=== PATIENT | female | born 1940 | race Asian ===

== ENCOUNTER 2017-10-19 06:23 | Observation (INO) ==
[2017-10-19] MEDS ORDERED: *HR* FentaNYL (PF) 100 MCG/2 ML VIAL IVP ONE (06:35)
--- NOTE | 2017-10-19 06:38 | Emergency Department Note ---
START Narrative - START START: 77-year-old female percent for evaluation of left lower knee pain. Patient presents via EMS. EMS reported the patient did get up to use the restroom and was ambulating with the symptoms of a walker. Patient notes that her pain significantly worsened and she sat down. Patient does not she has a history of a left leg fracture back in December of last year. Patient denies any recent surgeries. Patient notes pain is primarily to the left knee. Denies any hip pain. Denies any chest pain or shortness of breath. Neurovascularly intact. On exam the patient does have a soft mobilizing to the left knee. Grossly deformed. Neurovascularly intact to soft compartments. Patient will get preoperative labs and EKG as well as imaging of the left lower extremity.
[2017-10-19] MEDS ORDERED: traMADol 50 MG TABLET PO ONE (06:55)
[2017-10-19 07:01] LABS: Basophils % 0.2 %; Eosinophils # 0.1 K/mcL (0.0-0.6); Eosinophils % 0.6 %; Hematocrit 35.8 % (35.3-44.9); Hemoglobin 11.9 g/dL (11.5-15.4); Immature Granulocytes % 0.7 % (0-4); Lymphocytes # 1.3 K/mcL (0.6-4.6); Lymphocytes % 9.9 %; Mean Corpuscular HGB Conc 33.2 g/dL (31.6-35.5); Mean Corpuscular Hemoglobin 34.5 pg (28.0-33.3); Mean Corpuscular Volume 103.8 fL (83.0-100.0); Mean Platelet Volume 10.3 fL (9.4-12.4); Monocytes # 0.8 K/mcL (0.0-1.3); Monocytes % 5.9 %; Neutrophils # 10.9 K/mcL (1.6-8.9); Platelet Count 224 K/mcL (140-400); Red Blood Count 3.45 M/mcL (3.82-4.97); Red Cell Distribution Width 13.9 % (11.5-14.5); Segmented Neutrophils % 82.7 %
--- NOTE | 2017-10-19 07:22 | Emergency Department Note ---
Disposition Clinical Impression: Closed fracture of left tibia and fibula Qualifiers: Encounter type: initial encounter Qualified Code(s): S82.202A - Unspecified fracture of shaft of left tibia, initial encounter for closed fracture Disposition: Admitted As Inpatient Condition: Good Referrals: Ruddy Daniel Jr, MD [Primary Care Provider] - Forms: ED Satisfaction Letter Time of Disposition: 11:52 General Adult HPI - General Chief complaint: ED Extremity Injury, Lower Stated complaint: leg injury Time Seen by Provider: 10/19/17 06:33 Source: patient Limitations: no limitations Nursing Notes Reviewed: Yes Vital Signs Reviewed: Yes - History of Present Illness HPI Narrative: Pain on ambulation of left lower extremity. Started when she was ambulating to the bathroom. No loss of consciousness. No trauma. Has not taken anything to make this better. Is currently refusing medication and is requesting Ultram. No radiation. Has been ambulatory since however this is a significant source of pain for her. Pain Scale: 4 - Related Data Home Medications Medication Instructions Recorded Confirmed Amiloride HCl 5 mg PO DAILY 10/19/17 10/19/17 Calcium Carbonate/Vitamin D3 1 tab PO BID 10/19/17 10/19/17 [Calcium 500 + Vit D Caplet] Celecoxib [Celebrex] 200 mg PO DAILY 10/19/17 10/19/17 Multivitamin [One Daily Essential] 1 tab PO DAILY 10/19/17 10/19/17 Tofacitinib Citrate [Xeljanz] 10 mg PO DAILY 10/19/17 10/19/17 Tramadol HCl [Ultram] 50 mg PO QID PRN 10/19/17 10/19/17 Allergies Allergy/AdvReac Type Severity Reaction Status Date / Time No Known Allergies Allergy Verified 10/19/17 09:05 All systems ED: reviewed and negative except as stated. Constitutional: Denies: fever, chills ENT ED: Denies: congestion Cardiovascular: Denies: chest pain, palpitations, syncope Respiratory: Denies: cough, dyspnea Gastrointestinal: Denies: abdominal pain, nausea, vomiting, diarrhea Musculoskeletal: Reports: other (Left lower leg pain. Deformity.). Denies: back pain, neck pain Integumentary: Denies: rash, abrasion Neurological: Denies: headache, weakness, numbness Past Medical History - Past Medical History Attestation: Yes The following information was validated with the patient. Source: patient Medical history: Reports: arthritis, hypertension, RA Psychiatric history: Reports: no psych history - Social History Smoking Status: Former smoker Smokeless Tobacco Status: No Alcohol use: Reports: none Drug use: Reports: none Physical Exam - General Limitations: no limitations General appearance: alert, in no apparent distress - Head Head exam: atraumatic, normocephalic, normal inspection - Eye Eye exam: Present: normal appearance, PERRL, EOMI - ENT ENT exam: normal exam, normal oropharynx, mucous membranes moist - Neck Neck exam: Present: normal inspection, full ROM, trachea midline - Chest Chest inspection: Present: normal inspection, symmetric chest wall rise - Respiratory Respiratory exam: Present: normal lung sounds bilaterally. Absent: respiratory distress, accessory muscle use - Cardiovascular Cardiovascular exam: Present: regular rate, normal rhythm, normal heart sounds - Abdominal Exam Abdominal exam: Present: soft, Non-Tender. Absent: tenderness, distention, guarding, rebound, rigidity, organomegaly, Morris's sign, Rovsing's sign, tenderness at McBurney's Point - Expanded Upper Extremity Exam Shoulder exam: Present: normal inspection, full ROM Arm exam: Present: normal inspection, full ROM Elbow exam: Present: normal inspection, full ROM Forearm/Wrist exam: Present: normal inspection, full ROM Hand exam: Present: normal inspection, full ROM, other (Lateral deviation consistent with rheumatoid arthritis of all of her digits.) Vascular exam: Normal: capillary refill, radial pulse - Expanded Lower Extremity Exam Hip/Pelvis exam: Present: normal inspection, full ROM Upper leg exam: Present: normal inspection, full ROM Knee exam: Present: normal inspection Lower leg exam: Present: other (Gross deformity of left lower extremity. Valgus to the left proximal tib-fib area. Mild swelling and ecchymosis to the left tib-fib. Good pedal pulses bilaterally. Good sensation bilaterally. All compartments are soft.) Ankle exam: Present: normal inspection, full ROM Foot/toe exam: Present: normal inspection, full ROM, other (Lateral deviation of all digits. Consistent with rheumatoid arthritis.) - Back Exam Back exam: Present: normal inspection, full ROM. Absent: tenderness - Neurological Exam Neurological exam: Present: alert, oriented X3 - Psychiatric Psychiatric exam: Present: normal affect, normal mood - Skin Skin exam: Present: warm, dry, intact, normal color Course Course Narrative: Female patient with a history of rheumatoid arthritis as well as osteoporosis and elevated blood pressure reporting to the emergency department with the complaints of left lower extremity pain. She states that she was ambulating to the bathroom when she felt a pop in her leg. She denies any trauma. She denies falling or any syncope. She did notice a deformity to her leg at that time. She was able to get back to her bed which is where her life alert is located. A mass was called. Patient does have gross deformity of her tib-fib area on the left lower extremity. She has some ecchymosis as well as swelling and a fluid-filled blister over the area that is grossly deformed. Do not appreciate any breaks in her skin currently. The compartments are soft. There is some mild swelling and ecchymosis however she has good pulses distal to the injury. She has good sensation. No other signs of trauma to her body. She does have a small fluid-filled blister over the area of injury. Lung sounds are clear heart tones are normal. The patient appears to be mentating appropriately. She does report that there was a small deformity to her lower extremity before from a previous knee issue. Imaging of this extremity showed a comminuted fracture with deviation of her tibia and fibula to the left lower extremity. Dr. Dubon has been consult it. He will come to the emergency department. We will procedurally sedate the patient and straighten this extremity. We will made to the hospitalist. - Reevaluation(s) Reevaluation #1: Pharmacy contacted at this time. We are still waiting on ketamine for the sedation. Patient states also she was last night. Time: 08:57 - Consultations Consultation #1: I spoke with Dr. Hernandez. He will be down to see the patient. We will procedurally sedate the patient and straighten her leg. We will place a long posterior splint. We will be admitting to the hospitalist. Time: 08:11 Consultation #2: Dr Kurtz accepted patient stable condition. Time: 11:51 Vital Signs Temperature 98.2 F 10/19/17 06:32 Pulse Rate 90 10/19/17 06:32 Respiratory Rate 16 10/19/17 06:32 Blood Pressure 139/83 10/19/17 06:32 O2 Sat by Pulse Oximetry 100 10/19/17 06:32 Temperature 98.2 F 10/19/17 06:32 Pulse Rate 82 10/19/17 11:11 Respiratory Rate 18 10/19/17 11:11 Blood Pressure 154/84 10/19/17 11:11 O2 Sat by Pulse Oximetry 99 10/19/17 10:32 Oxygen Delivery Oxygen Delivery [] Nasal Cannula Oxygen Delivery [] Nasal Cannula Oxygen Delivery [] Nasal Cannula Oxygen Delivery [] Nasal Cannula Oxygen Delivery [] Nasal Cannula Oxygen Delivery [] Nasal Cannula Oxygen Delivery [] Nasal Cannula Oxygen Delivery [] Nasal Cannula Oxygen Delivery [] Nasal Cannula Oxygen Delivery Room Air Procedures - Procedural Sedation Indication: fracture/dislocation reduction Dietary Status: NPO after Midnight H&P (including ROS) documented in medical record: Yes Previous reaction to sedatives/anesthetics: No Airway Assessment: Patient can open mouth completely, TMJ function normal Possible difficult airway: No ASA Classification: CLASS II-Mild systemic disease Ketamine: IV Ketamine Dose: 90 Patient Tolerated Procedure: well, no complications Complications: none Additional Comments: Patient's lower extremity was reduced. And splinted. Medical Decision Making - Medical Records Medical records reviewed: Yes I reviewed the patient's medical records. - Lab Data Lab results reviewed: Yes I reviewed the patient's lab results. Result diagrams: 10/19/17 06:53 10/19/17 06:53 Lab Results 10/19/17 10/19/17 Range/Units 06:53 06:53 WBC 13.2 H (4.3-11.1) K/mcL RBC 3.45 L (3.82-4.97) M/mcL Hgb 11.9 (11.5-15.4) g/dL Hct 35.8 (35.3-44.9) % MCV 103.8 H (83.0-100.0) fL MCH 34.5 H (28.0-33.3) pg MCHC 33.2 (31.6-35.5) g/dL RDW 13.9 (11.5-14.5) % Plt Count 224 (140-400) K/mcL MPV 10.3 (9.4-12.4) fL Immature Gran % 0.7 (0-4) % Seg Neutrophils % 82.7 % Lymphocytes % 9.9 % Monocytes % 5.9 % Eosinophils % 0.6 % Basophils % 0.2 % Neutrophils # 10.9 H (1.6-8.9) K/mcL Lymphocytes # 1.3 (0.6-4.6) K/mcL Monocytes # 0.8 (0.0-1.3) K/mcL Eosinophils # 0.1 (0.0-0.6) K/mcL Basophils # 0.0 (0.0-0.2) K/mcL Sodium 138 (136-145) mEq/L Potassium 4.1 (3.5-5.1) mEq/L Chloride 109 H (98-107) mEq/L Carbon Dioxide 19 L (23-29) mEq/L BUN 28 H (8-23) mg/dL Creatinine 1.03 (0.60-1.20) mg/dL Est GFR ( Amer) > 60 (> 60) Est GFR (Non-Af Amer) 52 L (> 60) BUN/Creatinine Ratio 27 H (6-26) Glucose 146 H (70-105) mg/dL Calculated Osmolality 294 (280-300) Calcium 9.2 (8.6-10.3) mg/dL - Radiology Data Radiology results reviewed: Yes I reviewed the patient's radiology results. Knee X-Ray 10/19/17 06:34 IMPRESSION: Acute appearing fractures of the proximal left tibia and fibula. Severe degenerative changes about the knee and ankle. D/ / Blayne Benavidez MD / Blayne Benavidez MD Interpreting Provider: Blayne Benavidez MD Ankle X-Ray 10/19/17 06:35 IMPRESSION: Acute appearing fractures of the proximal left tibia and fibula. Severe degenerative changes about the knee and ankle. D/ / Blayne Benavidez MD / Blayne Benavidez MD Interpreting Provider: Blayne Benavidez MD Tibia/Fibula X-Ray 10/19/17 06:35 IMPRESSION: Acute appearing fractures of the proximal left tibia and fibula. Severe degenerative changes about the knee and ankle. D/ / Blayne Benavidez MD / Blayne Benavidez MD Interpreting Provider: Blayne Benavidez MD - EKG Data EKG #1 EKG attestation: Yes I reviewed and interpreted this EKG. EKG results narrative: Normal sinus rhythm at a rate 84. IA interval is 163. QRS duration is 87. QT is 384. QTC is 454. No signs of acute ischemia. No significant change from previous EKG dated 04/17/2014.
--- NOTE | 2017-10-19 07:30 | Emergency Department Note ---
Disposition Clinical Impression: Closed fracture of left tibia and fibula Qualifiers: Encounter type: initial encounter Qualified Code(s): S82.202A - Unspecified fracture of shaft of left tibia, initial encounter for closed fracture; S82.402A - Unspecified fracture of shaft of left fibula, initial encounter for closed fracture Disposition: Still a Patient Referrals: Ruddy Daniel Jr, MD [Primary Care Provider] - Forms: ED Satisfaction Letter General Adult HPI - General Chief complaint: ED Extremity Injury, Lower Stated complaint: leg injury Time Seen by Provider: 10/19/17 06:33 Source: patient Limitations: no limitations - History of Present Illness Pain Scale: 4 - Related Data Allergies Allergy/AdvReac Type Severity Reaction Status Date / Time No Known Allergies Allergy Verified 10/19/17 06:31 Past Medical History - Past Medical History Medical history: Reports: arthritis, hypertension, RA Psychiatric history: Reports: no psych history - Social History Smoking Status: Former smoker Smokeless Tobacco Status: No Alcohol use: Reports: none Drug use: Reports: none Physical Exam - General Limitations: no limitations General appearance: alert Course - Reevaluation(s) Reevaluation #1: ED ATTESTATION NOTE: I examined this patient and my medical decision-making was reviewed with the Resident Physician/NITROGLYCERIN SUPERVISOR/PA/Student. I have personally performed a face to face evaluation on this patient & I agree with the documented findings, disposition and treatment plan as described except to the extent set forth below. Patient was seen with emergency medicine resident Irina Gutierrez please see copy of her note for details of this encounter Briefly: 77-year-old female via EMS after of feeling her leg "give out" use walker. History of pre-existing left knee surgery that was present by palpation and she has had angulation of her left lower extremity for a while now. Patient did not injure her head or neck. She is awake and alert she declined parenteral narcotics. She is afebrile with stable vital signs she is neurovascularly intact x-ray shows a angulated proximal tib-fib fracture. No signs of compartment syndrome clinically. Dr. Keturah Mcintosh from orthopedics has been consulted. Labs are pending admission anticipated. Disposition pending. Time: 07:30 Vital Signs Temperature 98.2 F 10/19/17 06:32 Pulse Rate 90 10/19/17 06:32 Respiratory Rate 16 10/19/17 06:32 Blood Pressure 139/83 10/19/17 06:32 O2 Sat by Pulse Oximetry 100 10/19/17 06:32 Temperature 98.2 F 10/19/17 06:32 Pulse Rate 90 10/19/17 06:32 Respiratory Rate 16 10/19/17 06:32 Blood Pressure 139/83 10/19/17 06:32 O2 Sat by Pulse Oximetry 100 10/19/17 06:32 Oxygen Delivery Oxygen Delivery Room Air Medical Decision Making - Lab Data Result diagrams: 10/19/17 06:53 Lab Results 10/19/17 Range/Units 06:53 WBC 13.2 H (4.3-11.1) K/mcL RBC 3.45 L (3.82-4.97) M/mcL Hgb 11.9 (11.5-15.4) g/dL Hct 35.8 (35.3-44.9) % MCV 103.8 H (83.0-100.0) fL MCH 34.5 H (28.0-33.3) pg MCHC 33.2 (31.6-35.5) g/dL RDW 13.9 (11.5-14.5) % Plt Count 224 (140-400) K/mcL MPV 10.3 (9.4-12.4) fL Immature Gran % 0.7 (0-4) % Seg Neutrophils % 82.7 % Lymphocytes % 9.9 % Monocytes % 5.9 % Eosinophils % 0.6 % Basophils % 0.2 % Neutrophils # 10.9 H (1.6-8.9) K/mcL Lymphocytes # 1.3 (0.6-4.6) K/mcL Monocytes # 0.8 (0.0-1.3) K/mcL Eosinophils # 0.1 (0.0-0.6) K/mcL Basophils # 0.0 (0.0-0.2) K/mcL
[2017-10-19 07:40] LABS: Chloride 109 mEq/L (98-107); Potassium 4.1 mEq/L (3.5-5.1); Sodium 138 mEq/L (136-145)
[2017-10-19 07:41] LABS: Blood Urea Nitrogen 28 mg/dL (8-23); Calcium 9.2 mg/dL (8.6-10.3); Glucose 146 mg/dL (70-105); Osmolality,Calculated 294 (280-300)
[2017-10-19] MEDS ORDERED: Tdap (Boostrix) Vaccine 0.5 ML SYRINGE IM ONE (08:00)
[2017-10-19] MEDS ORDERED: *HR* Ketamine 500 MG/5 ML MDV IVP ONE (08:04)
[2017-10-19] MEDS ORDERED: 0.9 % Sodium Chloride 1,000 ML IVC ONE (08:11)
[2017-10-19] MEDS ORDERED: KETAMINE IVP ONE (09:00)
[2017-10-19] MEDS ORDERED: SODIUM CHLORIDE 0.9% IVP ONE (09:00)
[2017-10-19 09:09] LABS: BUN/Creatinine Ratio 27 (6-26); Carbon Dioxide 19 mEq/L (23-29); eGFR For Non-African Americans 52 (> 60)
[2017-10-19] MEDS ORDERED: Ondansetron 4 MG/2 ML VIAL IVP ONE (13:03)
[2017-10-19] MEDS ORDERED: Ondansetron 4 MG/2 ML VIAL ONE (13:06)
[2017-10-19] MEDS ORDERED: Naloxone 0.4 MG/ML INJ IVP PRN (13:18)
[2017-10-19] MEDS ORDERED: *HR* OxyCODONE Immed Rel 5 MG TABLET PO PRN (13:18)
[2017-10-19] MEDS ORDERED: Acetaminophen 325 MG TABLET PO PRN (13:18)
[2017-10-19] MEDS ORDERED: Ondansetron 4 MG/2 ML VIAL IVP PRN (13:22)
[2017-10-19] MEDS ORDERED: Ringers Solution, Lactated 1,000 ML IVC SCH (13:30)
--- NOTE | 2017-10-19 15:31 | Orthopedic Consult Note ---
Date of Encounter: 10/19/17 Time of Encounter: 15:29 Assessment and Plan (1) Closed fracture of left tibia and fibula Current Visit: Yes Status: Acute The diagnosis and treatment recommendations were discussed with the patient. She has a displaced fracture of the left tibia and fibula. After discussing the pros and cons of treatment options including non-operative and operative intervention, the patient has consented for closed reduction of the left leg and placement of a long leg splint to improve her alignment. Procedure: Patient was placed on a monitor and conscious sedation was performed by the emergency department physician. The tibia and fibula were then closed reduced. A long leg posterior slab splint with a sugartong was placed on the patient to allow for swelling. Splint was allowed to harden and then postreduction x-rays were obtained. Showed improvement in the alignment of the fracture in both AP and lateral planes. We will follow x-rays while admitted. If there is evidence of the bone shifting we will take her for a closed reduction in the operating room and casting. She should remain nonweightbearing of the left lower extremity. She will be admitted to the hospitalist service. Qualifiers: Encounter type: initial encounter Qualified Code(s): S82.202A - Unspecified fracture of shaft of left tibia, initial encounter for closed fracture; S82.402A - Unspecified fracture of shaft of left fibula, initial encounter for closed fracture History of Present Illness Chief complaint: Left leg pain HPI: Ms. Graham is a 77 year old female with a history of rheumatoid arthritis who had acute onset of pain in the left leg well ambulating to the bathroom. She denies actually falling. She had a significant pain in the left leg and noticed a deformity to the leg and sat down. EMS was called and she was brought to the emergency department where she was diagnosed with a displaced left proximal third tibia and fibula fracture. She does have a history of a left tibial plateau fracture treated nonoperatively about 9 months ago. She has fallen into valgus deformity on that side in the left knee. Patient notes pain is primarily to the left leg. Denies any hip pain. Denies any chest pain or shortness of breath. Neurovascularly intact. On exam the patient does have some swelling to the left leg. Grossly deformed. Past Med Surg Social Fam HX - Past Medical History Medical history: arthritis, hypertension, RA Psychiatric history: no psych history - Past Surgical History Additional surgical history: Carpal tunnel release - Social History Smoking Status: Former smoker Smokeless Tobacco Status: No Alcohol use: none Drug use: none Medications and Allergies Amiloride HCl 5 mg PO DAILY 10/19/17 [History] Calcium Carbonate/Vitamin D3 [Calcium 500 + Vit D Caplet] 1 tab PO BID 10/19/17 [History] Celecoxib [Celebrex] 200 mg PO DAILY 10/19/17 [History] Multivitamin [One Daily Essential] 1 tab PO DAILY 10/19/17 [History] Tofacitinib Citrate [Xeljanz] 10 mg PO DAILY 10/19/17 [History] Tramadol HCl [Ultram] 50 mg PO QID PRN 10/19/17 [History] 3 Allergy/AdvReac Type Severity Reaction Status Date / Time morphine AdvReac Hallucinati Verified 10/19/17 12:28 ng All Systems Reviewed: The remainder of the systems were reviewed and are negative except as noted in the HPI Physical Exam - Constitutional Vitals: Temp Pulse Resp BP Pulse Ox 98.7 F 67 14 152/76 98 10/19/17 15:05 10/19/17 15:05 10/19/17 15:05 10/19/17 15:05 10/19/17 15:05 Exam: Consult Exam: Constitutional -Vitals reviewed -The patient is well developed and well nourished. Psychiatric -The patient is alert and oriented x 3. Respiratory: -Respiratory effort normal Abdomen: -Soft abdomen -Non tender -Non distended: Left upper extremity: -The overlying skin is intact. No obvious signs of acute trauma. -No tenderness to palpation throughout. -No significant pain with passive motion of the shoulder, elbow, wrist, and fingers within the limits of the bed. -Spontaneously moves extremity without pain -Sensation grossly intact to light touch throughout the median, radial, and ulnar distributions. -Radial pulse is present; Fingers have good capillary refill. Right upper extremity: -The overlying skin is intact. No obvious signs of acute trauma. -No tenderness to palpation throughout. -No significant pain with passive motion of the shoulder, elbow, wrist, and fingers within the limits of the bed. -Spontaneously moves extremity without pain -Sensation grossly intact to light touch throughout the median, radial, and ulnar distributions. -Radial pulse is present; Fingers have good capillary refill. Left lower extremity: -Left leg shows obvious valgus deformity. Skin is intact with fracture blisters present -Compartments soft and compressible -Tenderness to palpation over deformity -No pain with log roll/IR at hip -Able to dorsiflex and plantarflex the ankle and toes. -Sensation is grossly intact to light touch throughout the sural, saphenous, superficial peroneal, and deep peroneal distributions. -Toes have good capillary refill. Right lower extremity: -The overlying skin is intact. No obvious signs of acute trauma. -No tenderness to palpation throughout. -No pain with passive motion of the hip, knee, ankle, and toes within the limits of the bed. -No pain with axial loading of the thigh. -Able to dorsiflex and plantarflex the ankle and toes. -Sensation is grossly intact to light touch throughout the sural, saphenous, superficial peroneal, and deep peroneal distributions. -Toes have good capillary refill. Results - Labs Result Diagrams: 10/19/17 06:53 10/19/17 06:53 Labs: Abnormal lab results WBC 13.2 K/mcL (4.3-11.1) H 10/19/17 06:53 RBC 3.45 M/mcL (3.82-4.97) L 10/19/17 06:53 MCV 103.8 fL (83.0-100.0) H 10/19/17 06:53 MCH 34.5 pg (28.0-33.3) H 10/19/17 06:53 Neutrophils # 10.9 K/mcL (1.6-8.9) H 10/19/17 06:53 Chloride 109 mEq/L (98-107) H 10/19/17 06:53 Carbon Dioxide 19 mEq/L (23-29) L 10/19/17 06:53 BUN 28 mg/dL (8-23) H 10/19/17 06:53 Est GFR (Non-Af Amer) 52 (> 60) L 10/19/17 06:53 BUN/Creatinine Ratio 27 (6-26) H 10/19/17 06:53 Glucose 146 mg/dL (70-105) H 10/19/17 06:53 Left Tibia/Fibular XR: Shows previous healed lateral tibial plateau fracture with the knee in valgus. Displaced fracture of the proximal third of the left tibia and fibula. There is anterior and valgus angulation. Consult Discharge Plan - Plan Referrals: Ruddy Daniel Jr, MD [Primary Care Provider] -
--- NOTE | 2017-10-19 16:15 | Internal Med History&Physical ---
<Noelle Mcnamara Panfilo - Last Filed: 10/19/17 16:11> Date of Encounter: 10/19/17 Time of Encounter: 15:35 Internal Medicine - H&P: HPI Admitted From: Home Plans for Post Hospital Care: Transfer [facility] History of present illness: Ms. Graham is a 77 year old female with prior history of rheumatoid arthritis. Patient presented to the emergency department with approximately one-week history of left ankle pain, worse over the last 2-3 days. Patient reports that she got up to the bathroom overnight, was using a walker, felt a pop in her ankle was able to bear weight. Patient denies fall or injury. She denies headache, dizziness, blurred vision, falling or hitting her head. She denies chest pain or shortness of breath, she denies nausea or vomiting. Patient is resting comfortably with pain 1-2 currently. Left lower extremity is splinted with Ortho-Glass, it is elevated. Orthopedic surgeon has already evaluated patient and will prepare for surgery tomorrow. Patient will be admitted for observation. Past Med Surg Social Fam HX - Past Medical History Medical history: arthritis, hypertension, RA Psychiatric history: no psych history - Past Surgical History Additional surgical history: Carpal tunnel release - Social History Smoking Status: Former smoker Smokeless Tobacco Status: No Alcohol use: none Drug use: none Internal Medicine - H&P: Meds Amiloride HCl 5 mg PO DAILY 10/19/17 [History] Calcium Carbonate/Vitamin D3 [Calcium 500 + Vit D Caplet] 1 tab PO BID 10/19/17 [History] Celecoxib [Celebrex] 200 mg PO DAILY 10/19/17 [History] Multivitamin [One Daily Essential] 1 tab PO DAILY 10/19/17 [History] Tofacitinib Citrate [Xeljanz] 10 mg PO DAILY 10/19/17 [History] Tramadol HCl [Ultram] 50 mg PO QID PRN 10/19/17 [History] 3 Allergy/AdvReac Type Severity Reaction Status Date / Time morphine AdvReac Hallucinati Verified 10/19/17 12:28 ng All Systems PM: A 10-system review of systems was performed and is negative for pertinent findings except as documented above in the HPI. - Constitutional Constitutional: no chills, no fatigue, no falls, no night sweats, no weakness - EENT Eyes: no change in vision, no discharge, no loss of vision, no photophobia Ears: no ear pain Nose, mouth and throat: no nasal obstruction, no post-nasal drip, no sinus pain , no sinus pressure, no sore throat - Cardiovascular Cardiovascular ROS IM: no chest pain, no claudication, no dyspnea, no irregular heart rhythm, no lightheadedness, no palpitations - Respiratory Respiratory: no dyspnea, no hemoptysis, no pain on inspiration, no chest congestion, no pain with cough - Gastrointestinal Gastrointestinal: no cramping, no diarrhea, no dysphagia, no heartburn, no nausea, no vomiting - Genitourinary Genitourinary: no dysuria, no urinary frequency, no urinary hesitancy, no urinary incontinence - Musculoskeletal Musculoskeletal ROS IM: limited range of motion, no back pain, no neck pain, no numbness, no tingling - Integumentary Integumentary IM: no rash - Neurological Neurological ROS: no dizziness, no focal weakness, no frequent falls, no headache(s), no memory loss, no numbness, no paresthesias, no radicular pain, no restless legs - Psychiatric Psychiatric: no behavioral changes, no hopelessness, no suicidal ideation - Constitutional Vitals: Temp Pulse Resp BP Pulse Ox 98.7 F 67 14 152/76 98 10/19/17 15:05 10/19/17 15:05 10/19/17 15:05 10/19/17 15:05 10/19/17 15:05 General appearance: Present: cooperative, pleasant, no acute distress, answers questions appropriately Exam: as above - Head Head exam: Present: atraumatic, normal inspection, normocephalic - Eye Eye exam: Present: normal appearance, conjuntiva pink, sclera anicteric Pupils: Present: PERRL - Neck Neck exam general surgery: Present: supple, trachea midline. Absent: lymphadenopathy, normal inspection, tenderness - Respiratory Respiratory exam: Present: CTAB. Absent: accessory muscle use, chest wall tenderness, rales, respiratory distress, rhonchi, wheezes - Cardiovascular Cardiovascular exam: Present: RRR, +S1, +S2. Absent: diastolic murmur, gallop, rubs, systolic murmur - GI/Abdominal GI/Abdominal exam: Present: normal bowel sounds, soft. Absent: distended, hepatomegaly, tenderness - Extremities Exam Extremities exam: Present: normal capillary refill, normal inspection, warm, radial pulses palpable and symmetrical. Absent: calf tenderness, cyanotic, pedal edema, tenderness - Neurological Exam Neurological exam: Present: alert, oriented X3, no focal deficits. Absent: altered, facial droop, speech deficit - Skin Skin exam: Present: dry, intact, normal color, warm. Absent: rash Internal Med - H&P Results - Labs CBC & Chem 7: 10/19/17 06:53 10/19/17 06:53 - Assessment and plan (1) Rheumatoid arthritis Current Visit: Yes Status: Chronic Assessment and plan: Chronic. Pt denies pain currently. Multiple deformed joints. Continue Xeljanz. Qualifiers: Rheumatoid arthritis location: multiple sites Rheumatoid factor presence: unspecified presence Qualified Code(s): M06.9 - Rheumatoid arthritis, unspecified (2) Closed fracture of left tibia and fibula Current Visit: Yes Status: Acute Assessment and plan: Pt reports approximately 1 week history of left leg pain,worse over the last 2 days. Pt states that she got up to walk with her walker and felt a pop, the pain became significantly worse and she was unable to bear weight. Xray reveals acute fractuers of the proximal left tibia and fibula. Conscious sedation in the ED, OrthoGlass splint in place. Orthopedics was consulted by the ED physician and has seen the pt, Dr Palafox will monitor xrays. If fracture appears to shift, she will be taken to OR for closed reduction. No weightbearing on left extremity Maintain orthoglass splint Ice/elevate Pain control PT/OT evaluations Ortho following Knee X-Ray 10/19/17 06:34 IMPRESSION: Acute appearing fractures of the proximal left tibia and fibula. Severe degenerative changes about the knee and ankle. D/ / Blayne Benavidez MD / Blayne Benavidez MD Interpreting Provider: Blayne Benavidez MD Ankle X-Ray 10/19/17 06:35 IMPRESSION: Acute appearing fractures of the proximal left tibia and fibula. Severe degenerative changes about the knee and ankle. D/ / Blayne Benavidez MD / Blayne Benavidez MD Interpreting Provider: Blayne Benavidez MD Qualifiers: Encounter type: initial encounter Qualified Code(s): S82.202A - Unspecified fracture of shaft of left tibia, initial encounter for closed fracture; S82.402A - Unspecified fracture of shaft of left fibula, initial encounter for closed fracture (3) DVT prophylaxis Current Visit: Yes Status: Acute Assessment and plan: Heparin SQ, encourage pt to chair post op - Time Spent With Patient Total time spent is greater than 50% in coordination of care (as documented) at patient's floor/unit and/or counseling patient: less than 15 minutes <Chance Kurtz - Last Filed: 10/19/17 16:40> Date of Encounter: 10/19/17 Internal Medicine - H&P: HPI History of present illness: Ms. Graham is a 77 year old female All Systems PM: A 10-system review of systems was performed and is negative for pertinent findings except as documented above in the HPI. - Constitutional Vitals: Temp Pulse Resp BP Pulse Ox 98.7 F 67 14 152/76 98 10/19/17 15:05 10/19/17 15:05 10/19/17 15:05 10/19/17 15:05 10/19/17 15:05 Internal Med - H&P Results - Labs CBC & Chem 7: 10/19/17 06:53 10/19/17 06:53 - Assessment and plan (1) Closed fracture of left tibia and fibula Current Visit: Yes Status: Acute Qualifiers: Encounter type: initial encounter Qualified Code(s): S82.202A - Unspecified fracture of shaft of left tibia, initial encounter for closed fracture; S82.402A - Unspecified fracture of shaft of left fibula, initial encounter for closed fracture (2) Rheumatoid arthritis Current Visit: Yes Status: Chronic Qualifiers: Rheumatoid arthritis location: multiple sites Rheumatoid factor presence: unspecified presence Qualified Code(s): M06.9 - Rheumatoid arthritis, unspecified (3) DVT prophylaxis Current Visit: Yes Status: Acute - Time Spent With Patient Total time spent is greater than 50% in coordination of care (as documented) at patient's floor/unit and/or counseling patient: - Attending Attestation I examined this patient and my medical decision-making was reviewed with the Nurse Practictioner. I agree with the documented findings, disposition and treatment plan as described except to the extent set forth below.
[2017-10-19] MEDS: *HR* Heparin 5,000 UNIT/ML VIAL SQ SCH (18:02)
[2017-10-20 01:20] LABS: Basophils % 0.4 %; Eosinophils # 0.1 K/mcL (0.0-0.6); Eosinophils % 1.2 %; Hematocrit 34.2 % (35.3-44.9); Immature Granulocytes % 0.4 % (0-4); Lymphocytes # 0.8 K/mcL (0.6-4.6); Lymphocytes % 9.6 %; Mean Corpuscular HGB Conc 32.2 g/dL (31.6-35.5); Mean Corpuscular Hemoglobin 33.2 pg (28.0-33.3); Mean Corpuscular Volume 103.3 fL (83.0-100.0); Mean Platelet Volume 10.4 fL (9.4-12.4); Monocytes # 0.9 K/mcL (0.0-1.3); Monocytes % 10.6 %; Neutrophils # 6.4 K/mcL (1.6-8.9); Platelet Count 213 K/mcL (140-400); Red Blood Count 3.31 M/mcL (3.82-4.97); Red Cell Distribution Width 14.3 % (11.5-14.5); Segmented Neutrophils % 77.8 %
--- NOTE | 2017-10-20 09:29 | Orthopedics Progress Note ---
Date of Encounter: 10/20/17 Time of Encounter: 09:26 - Assessment and Plan (1) Closed fracture of left tibia and fibula Current Visit: Yes Status: Acute Qualifiers: Encounter type: initial encounter Qualified Code(s): S82.202A - Unspecified fracture of shaft of left tibia, initial encounter for closed fracture; S82.402A - Unspecified fracture of shaft of left fibula, initial encounter for closed fracture Subjective Interval history: No overnight issues. Pain tolerable AFVSS RLE: DNVI, wiggles toes, BCR Splint clean dry and intact A/P: s/p L tibia closed reduction/splinting Post reduction films show good alignment, no plans for further surgery at this time Strict NWB LLE PO pain control Discharge planning - will need rehab Objective Vital signs: Vital Signs Temp Pulse Resp BP Pulse Ox 10/20/17 06:43 99.5 F 74 17 128/81 97 10/20/17 04:00 99.0 F 75 16 127/71 96 10/19/17 23:29 98.8 F 76 16 133/77 96 10/19/17 19:35 98.6 F 86 16 117/74 98 10/19/17 15:05 98.7 F 67 14 152/76 98 10/19/17 13:33 98.7 F 63 16 149/82 96 Intake and Output 10/19/17 10/20/17 10/20/17 23:59 07:59 15:59 Output Total 1175 / 1175 450 / 450 Balance -1175 / -1175 -450 / -450 Output: Catheter 1175 / 1175 450 / 450 Other: Meal Breakfast Percent of Meal Consumed 0% Stool Size Large Stool Consistency soft Stool Characteristics Pasty Stool Color Brown - Labs CBC & BMP: 10/20/17 00:38 10/19/17 06:53 Labs: Abnormal lab results RBC 3.31 M/mcL (3.82-4.97) L 10/20/17 00:38 Hgb 11.0 g/dL (11.5-15.4) L 10/20/17 00:38 Hct 34.2 % (35.3-44.9) L 10/20/17 00:38 MCV 103.3 fL (83.0-100.0) H 10/20/17 00:38 Chloride 109 mEq/L (98-107) H 10/19/17 06:53 Carbon Dioxide 19 mEq/L (23-29) L 10/19/17 06:53 BUN 28 mg/dL (8-23) H 10/19/17 06:53 Est GFR (Non-Af Amer) 52 (> 60) L 10/19/17 06:53 BUN/Creatinine Ratio 27 (6-26) H 10/19/17 06:53 Glucose 146 mg/dL (70-105) H 10/19/17 06:53 Consult Discharge Plan - Plan Additional Instructions: Followup with Dr Pineda sports [facility] in 5-7 days Referrals: Ruddy Daniel Jr, MD [Primary Care Provider] -
[2017-10-20] MEDS: Celecoxib 200 MG CAPSULE PO SCH (09:33)
[2017-10-20] MEDS: *HR* Heparin 5,000 UNIT/ML VIAL SQ SCH ×2 (09:33→18:56)
[2017-10-20] MEDS: aMILoride 5 MG TABLET PO SCH (09:33)
[2017-10-20] MEDS: Multivit/Ca/Min/Fe/FA 1 TAB TABLET PO SCH (09:33)
[2017-10-20] MEDS: TOFACITINIB CITRATE 10 MG PO SCH (09:35)
--- NOTE | 2017-10-20 10:47 | Internal Med Progress Note ---
Hospitalist Progress Note - Encounter Date of Encounter: 10/20/17 Time of Encounter: 10:43 - Subjective Interval History: Patient no acute overnight events. Patient denies any complaints. Patient seen and examined at bedside. Patient saw by orthopedics and recommends no surgical intervention at this time. Patient will need rehabilitation placement. Patient denies any chest pain, shortness of breath, nausea, vomiting , diarrhea. Patient states her pain is controlled. - Exam Vitals: Temp Pulse Resp BP Pulse Ox 99.5 F 74 17 128/81 97 10/20/17 06:43 10/20/17 06:43 10/20/17 06:43 10/20/17 06:43 10/20/17 06:43 Exam: Constitutional: No acute distress, Alert Psych: AAO x 3 HEENT: NCAT, EOMI Cardio: regular rate and rhythm, +s1s2, Resp: clear to ascultation bilaterally Abd: soft, non tender/non distended Extremities: left lower extermity in splint, neurovascularly intact Neuro: no focal deficits appreciated - Assessment and Plan (1) Closed fracture of left tibia and fibula Current Visit: Yes Status: Acute Assessment and Plan: Per prior provider 10/19/17 Pt reports approximately 1 week history of left leg pain,worse over the last 2 days. Pt states that she got up to walk with her walker and felt a pop, the pain became significantly worse and she was unable to bear weight. Xray reveals acute fractuers of the proximal left tibia and fibula. Conscious sedation in the ED, OrthoGlass splint in place. Orthopedics was consulted by the ED physician and has seen the pt, Dr Palafox will monitor xrays. If fracture appears to shift, she will be taken to OR for closed reduction. No plans for surgery at this time however; good alignment. Plan: -No weightbearing on left extremity -Maintain orthoglass splint -Ice/elevate -analgesia -PT/OT evaluations -Ortho following -will need ECF placement for rehab (2) Rheumatoid arthritis Current Visit: Yes Status: Chronic Assessment and Plan: -Chronic -Pt denies pain currently. Multiple deformed joints. -Continue Xeljanz. -stable (3) DVT prophylaxis Current Visit: Yes Status: Acute Assessment and Plan: Heparin SQ, DVT Prophylaxis: hep sq - Summary of Assessment and Plan Summary of Assessment and Plan: Status/post left tibia reduction with splinting with good alignment; no surgical plans currently; will need ecf placement; await social work/case managment. - Time Spent with Patient Total time spent is greater than 50% in coordination of care (as documented) at patient's floor/unit and/or counseling patient: less than 15 minutes Plan of Care Discussed with: patient Internal Medicine: Result - Labs CBC & Chem 7: 10/20/17 00:38 10/19/17 06:53 Labs: Short CBC 10/20/17 Range/Units 00:38 WBC 8.2 (4.3-11.1) K/mcL Hgb 11.0 L (11.5-15.4) g/dL Hct 34.2 L (35.3-44.9) % Plt Count 213 (140-400) K/mcL Neutrophils # 6.4 (1.6-8.9) K/mcL - Impressions Impressions Tibia/Fibula X-Ray 10/19/17 15:26 IMPRESSION: Proximal tibia and fibular fractures. D/ / Breana Us Cha, MD / Breana Us Cha, MD Interpreting Provider: Breana Us Cha, MD Consult Discharge Plan - Plan Additional Instructions: Followup with Dr Pineda sports [facility] in 5-7 days Referrals: Ruddy Daniel Jr, MD [Primary Care Provider] - (1) Closed fracture of left tibia and fibula Qualifiers: Encounter type: initial encounter Qualified Code(s): S82.202A - Unspecified fracture of shaft of left tibia, initial encounter for closed fracture; S82.402A - Unspecified fracture of shaft of left fibula, initial encounter for closed fracture (2) Rheumatoid arthritis Qualifiers: Rheumatoid arthritis location: multiple sites Rheumatoid factor presence: unspecified presence Qualified Code(s): M06.9 - Rheumatoid arthritis, unspecified
[2017-10-21 02:12] LABS: Basophils % 0.3 %; Eosinophils # 0.2 K/mcL (0.0-0.6); Eosinophils % 3.3 %; Hematocrit 32.9 % (35.3-44.9); Hemoglobin 10.6 g/dL (11.5-15.4); Immature Granulocytes % 0.9 % (0-4); Lymphocytes # 1.5 K/mcL (0.6-4.6); Lymphocytes % 21.3 %; Mean Corpuscular HGB Conc 32.2 g/dL (31.6-35.5); Mean Corpuscular Hemoglobin 33.9 pg (28.0-33.3); Mean Corpuscular Volume 105.1 fL (83.0-100.0); Mean Platelet Volume 10.6 fL (9.4-12.4); Monocytes # 0.8 K/mcL (0.0-1.3); Monocytes % 11.9 %; Neutrophils # 4.4 K/mcL (1.6-8.9); Platelet Count 198 K/mcL (140-400); Red Blood Count 3.13 M/mcL (3.82-4.97); Red Cell Distribution Width 14.4 % (11.5-14.5); Segmented Neutrophils % 62.3 %
[2017-10-21 02:34] LABS: Calcium 9.2 mg/dL (8.6-10.3); Potassium 4.3 mEq/L (3.5-5.1)
[2017-10-21] MEDS: traMADol 50 MG TABLET PO PRN ×2 (02:56→18:21)
[2017-10-21] MEDS: *HR* Heparin 5,000 UNIT/ML VIAL SQ SCH ×2 (05:52→18:06)
[2017-10-21] MEDS: aMILoride 5 MG TABLET PO SCH (08:51)
[2017-10-21] MEDS: Multivit/Ca/Min/Fe/FA 1 TAB TABLET PO SCH (08:51)
[2017-10-21] MEDS: Celecoxib 200 MG CAPSULE PO SCH (08:51)
[2017-10-21] MEDS: TOFACITINIB CITRATE 10 MG PO SCH (08:51)
--- NOTE | 2017-10-21 18:47 | Internal Med Progress Note ---
Hospitalist Progress Note - Encounter Date of Encounter: 10/21/17 Time of Encounter: 18:45 - Subjective Interval History: Patient seen and evaluated at bedside. Reports minimal pain in the left lower extremity. Denies lightheadedness, shortness of breath, chest pain. No event over the past 24 hours. - Exam Vitals: Temp Pulse Resp BP Pulse Ox 98.3 F 85 16 111/68 96 10/21/17 15:23 10/21/17 15:23 10/21/17 15:23 10/21/17 15:23 10/21/17 15:23 Exam: General: Alert and oriented 3. No acute distress Cardiovascular: Regular, Normal S1 & S2, no rubs, murmurs or gallops. No JVD. Lungs: Clear breath sounds to auscultation bilaterally, no wheezes or crackles. Abdomen: Soft, non-tender, no rigidity. Extremities: Left lower extremity status post close reduction and splinting. No edema in the right lower extremity. Neurological:Normal cognition and motor skills. Rest of the physical exam is non contributory - Assessment and Plan (1) Closed fracture of left tibia and fibula Current Visit: Yes Status: Acute Assessment and Plan: s/p L tibia closed reduction/splinting Plan: - Pain control with oxycodone every 8 hours for breakthrough pain, and tramadol 50 mg every 6 hours when necessary - PT recommended SNF, patient pending insurance reauthorization for placement - Patient has a follow up appointment with Ortho as outpatient on Friday (2) Rheumatoid arthritis Current Visit: Yes Status: Chronic Assessment and Plan: With bilateral hand deformities. Plan: - Continue Celecoxib 200 mg daily - Patient on Tofacitinib. 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 Blood pressure well controlled. Plan: - Continue current antihypertensive medications - Summary of Assessment and Plan Summary of Assessment and Plan: Patient pending Authorization for placement to rehab - Time Spent with Patient Total time spent is greater than 50% in coordination of care (as documented) at patient's floor/unit and/or counseling patient: 25 - 35 minutes Plan of Care Discussed with: patient Internal Medicine: Result - Labs CBC & Chem 7: 10/21/17 01:08 10/21/17 01:08 Labs: Short CBC 10/21/17 Range/Units 01:08 WBC 7.1 (4.3-11.1) K/mcL Hgb 10.6 L (11.5-15.4) g/dL Hct 32.9 L (35.3-44.9) % Plt Count 198 (140-400) K/mcL Neutrophils # 4.4 (1.6-8.9) K/mcL BMP 10/21/17 01:08 Sodium 139 Potassium 4.3 Chloride 106 Carbon Dioxide 25 BUN 21 Creatinine 1.13 Glucose 106 H Calcium 9.2 - VTE Documentation of Mechanical Device: Venous foot pump, device Consult Discharge Plan - Plan Additional Instructions: Strict non weight bearing to left leg. Keep splint/dressing clean and dry at all times. Referrals: Felicia Pineda DO [Partnered Physician] - 10/24/17 11:30 am (1) Closed fracture of left tibia and fibula Qualifiers: Encounter type: initial encounter Qualified Code(s): S82.202A - Unspecified fracture of shaft of left tibia, initial encounter for closed fracture; S82.402A - Unspecified fracture of shaft of left fibula, initial encounter for closed fracture (2) Rheumatoid arthritis Qualifiers: Rheumatoid arthritis location: multiple sites Rheumatoid factor presence: unspecified presence Qualified Code(s): M06.9 - Rheumatoid arthritis, unspecified (4) Hypertension Qualifiers: Hypertension type: unspecified Qualified Code(s): I10 - Essential (primary) hypertension
[2017-10-22] MEDS: traMADol 50 MG TABLET PO PRN ×2 (06:16→16:32)
[2017-10-22] MEDS: *HR* Heparin 5,000 UNIT/ML VIAL SQ SCH ×2 (06:16→16:32)
[2017-10-22 09:15] LABS: Bilirubin,Urine Negative (Negative); Blood,Urine Small (Negative); Clarity,Urine Cloudy (Clear); Color,Urine Yellow (Yellow); Glucose,Urine (UA) Normal (Normal); Ketones,Urine Negative (Negative); Leukocyte Esterase,Urine Large (Negative); Nitrite,Urine Negative (Negative); PH,Urine 6.5 pH Units (5.0-8.0); Protein,Urine Trace mg/dL (Neg-Trace); Specific Gravity,Urine 1.015 (1.010-1.025); Urobilinogen,Urine Normal (Normal)
[2017-10-22 09:17] LABS: Bacteria,Urine Many per hpf (None-Few); Hyaline Casts,Urine None Seen per lpf (None-Few); Squamous Epithelial Cell,Urine None Seen per lpf (None-Few); WBC,Urine TNTC per hpf (0-3)
--- NOTE | 2017-10-22 09:33 | Discharge Summary ---
- NOTES TO OUTPATIENT PROVIDER Notes to Outpatient Provider: Patient has an appointment to follow-up with the orthopedic on Friday Orders not resulted at time of discharge: Pending orders 10/22/17 08:50 Culture,Urine [RM] Routine 10/22/17 08:54 BMP [Basic Metabolic Panel] Routine CBC no Diff [Complete Blood Count w/o Diff] [HEME] Routine Date of Encounter: 10/22/17 Time of Encounter: 09:30 - Discharge Diagnosis (1) Closed fracture of left tibia and fibula Priority: Primary Status: Acute Assessment and Plan: Nontraumatic. Qualifiers: Encounter type: initial encounter Qualified Code(s): S82.202A - Unspecified fracture of shaft of left tibia, initial encounter for closed fracture; S82.402A - Unspecified fracture of shaft of left fibula, initial encounter for closed fracture (2) Rheumatoid arthritis Priority: Secondary Status: Chronic Qualifiers: Rheumatoid arthritis location: multiple sites Rheumatoid factor presence: unspecified presence Qualified Code(s): M06.9 - Rheumatoid arthritis, unspecified (3) Hypertension Priority: Secondary Status: Chronic Qualifiers: Hypertension type: unspecified Qualified Code(s): I10 - Essential (primary ) hypertension (4) DVT prophylaxis Priority: Secondary Status: Acute (5) Anemia Priority: Secondary Status: Chronic Qualifiers: Anemia type: unspecified type Qualified Code(s): D64.9 - Anemia, unspecified (6) Urinary tract infection Priority: Secondary Status: Acute Assessment and Plan: patient with urgency and frequency. Plan: - Nitrofurantoin 100mg BID/PO for 5 days. Qualifiers: Urinary tract infection type: acute cystitis Hematuria presence: without hematuria Qualified Code(s): N30.00 - Acute cystitis without hematuria Hospital course: Ms. Graham is a 77 year old female past medical history of rheumatoid arthritis and hypertension. Patient presented to the emergency room due to a week history of left ankle pain. Patient reported that the pain started after she got up from bed and was walking to the bathroom overnight and her pop in her ankle associated with unbearable pain. Patient found to have a fracture of the proximal left tibia and fibula. Patient hadL tibia closed reduction/splinting. Ortho has cleared the patient to be discharged to rehabilitation and to follow -up with them on Friday. Pain has been well controlled tramadol. Patient clinically is stable, to be discharged to rehabilitation facility. Discharge discussed with: patient, nurse - Time Spent with Patient Total time spent providing and/or coordinating discharge services: Greater than 30 minutes - Discharge Medications Prescriptions: Nitrofurantoin (BID) [Macrobid] 100 mg PO BID 5 Days #10 capsule Omeprazole [PriLOSEC] 20 mg PO DAILY@0630 30 Days #30 capsule. Home Medications: Amiloride HCl 5 mg PO DAILY 10/19/17 [History] Calcium Carbonate/Vitamin D3 [Calcium 500 + Vit D Caplet] 1 tab PO BID 10/19/17 [History] Celecoxib [Celebrex] 200 mg PO DAILY 10/19/17 [History] Multivitamin [One Daily Essential] 1 tab PO DAILY 10/19/17 [History] Tofacitinib Citrate [Xeljanz] 10 mg PO DAILY 10/19/17 [History] Tramadol HCl [Ultram] 50 mg PO QID PRN 10/19/17 [History] Acetaminophen [Tylenol] 650 mg PO Q6HR PRN tablet 10/22/17 [Rx] Nitrofurantoin (BID) [Macrobid] 100 mg PO BID 5 Days #10 capsule 10/22/17 [Rx] Omeprazole [PriLOSEC] 20 mg PO DAILY@0630 30 Days #30 capsule. 10/22/17 [Rx] Allergies/Adverse Reactions: 3 Allergy/AdvReac Type Severity Reaction Status Date / Time morphine AdvReac Hallucinati Verified 10/19/17 12:28 ng Date of admission: 10/19/17 12:01 Primary care physician: Ruddy Daniel Jr, MD Consults: 10/19/17 14:37 Consult to Lathe Set Up Person [CONS] Routine Reason for SW Consult: Possible rehab placement 10/19/17 16:20 Consult to Physical Therapy [CONS] Routine Comment: Evaluate, develop and implement POC Reason for Consult: evaluation Does patient have active BEDREST order?: No Is patient medically & hemodynamically stable?: Yes Patient assessed for mobility or mobilized this visit?: No Consult to Physical Therapy [CONS] Routine Comment: Evaluate, develop and implement POC Reason for Consult: evaluation. left tib/fib fracture. Pt will most likely need rehabilitation. Does patient have active BEDREST order?: No Is patient medically & hemodynamically stable?: Yes Patient assessed for mobility or mobilized this visit?: Yes 10/21/17 07:23 Consult to Occupational Therapy [CONS] Routine Comment: Evaluate, develop and implement POC Reason for Consult: eval and treat; NWB Does patient have active BEDREST order?: No Is patient medically & hemodynamically stable?: Yes Patient assessed for mobility or mobilized this visit?: No - Constitutional Vitals: Temp Pulse Resp BP Pulse Ox 98.0 F 69 16 134/79 93 10/22/17 06:23 10/22/17 06:23 10/22/17 06:23 10/22/17 06:23 10/22/17 06:23 General appearance: Present: cooperative, pleasant, no acute distress, answers questions appropriately Exam: General: Alert and oriented 3. No acute distress Cardiovascular: Regular, Normal S1 & S2, no rubs, murmurs or gallops. No JVD. Lungs: Clear breath sounds to auscultation bilaterally, no wheezes or crackles. Abdomen: Soft, non-tender, no rigidity. Extremities: Left lower extremity status post close reduction and splinting. No edema in the right lower extremity. Neurological: Normal cognition. CN II-XII intact. Rest of the physical exam is non contributory - Patient Status Disposition: Transfer SNF Condition: Good Functional capacity at discharge: independent ambulation Overall status at discharge: patient is progressing back to baseline - Discharge Instructions Follow Up With: Felicia Pineda DO [Partnered Physician] - 10/24/17 11:30 am Additional Instructions: Strict non weight bearing to left leg. Keep splint/dressing clean and dry at all times. - Diet and Activity Activity: as per physical therapy Diet: advance to your usual diet - VTE Documentation of Mechanical Device: Venous foot pump, device
[2017-10-22] MEDS: aMILoride 5 MG TABLET PO SCH (09:53)
[2017-10-22] MEDS: Multivit/Ca/Min/Fe/FA 1 TAB TABLET PO SCH (09:53)
[2017-10-22] MEDS: Celecoxib 200 MG CAPSULE PO SCH (09:53)
--- NOTE | 2017-10-22 09:56 | Physician Discharge Referral ---
ExtendedCare Referral Info Transfer To: SNF - Diagnosis (1) Closed fracture of left tibia and fibula Priority: Primary Status: Acute (2) Rheumatoid arthritis Priority: Secondary Status: Chronic (3) Hypertension Priority: Secondary Status: Chronic (4) DVT prophylaxis Priority: Secondary Status: Acute (5) Anemia Priority: Secondary Status: Chronic (6) Urinary tract infection Priority: Secondary Status: Acute Prognosis: Good Aware of Diagnosis: Patient Aware of Prognosis: Patient - Transfer Medications Prescriptions: Nitrofurantoin (BID) [Macrobid] 100 mg PO BID 5 Days #10 capsule Omeprazole [PriLOSEC] 20 mg PO DAILY@0630 30 Days #30 capsule. Home Medications: Amiloride HCl 5 mg PO DAILY 10/19/17 [History] Calcium Carbonate/Vitamin D3 [Calcium 500 + Vit D Caplet] 1 tab PO BID 10/19/17 [History] Celecoxib [Celebrex] 200 mg PO DAILY 10/19/17 [History] Multivitamin [One Daily Essential] 1 tab PO DAILY 10/19/17 [History] Tofacitinib Citrate [Xeljanz] 10 mg PO DAILY 10/19/17 [History] Tramadol HCl [Ultram] 50 mg PO QID PRN 10/19/17 [History] Acetaminophen [Tylenol] 650 mg PO Q6HR PRN tablet 10/22/17 [Rx] Nitrofurantoin (BID) [Macrobid] 100 mg PO BID 5 Days #10 capsule 10/22/17 [Rx] Omeprazole [PriLOSEC] 20 mg PO DAILY@0630 30 Days #30 capsule. 10/22/17 [Rx] Allergies/Adverse Reactions: 3 Allergy/AdvReac Type Severity Reaction Status Date / Time morphine AdvReac Hallucinati Verified 10/19/17 12:28 ng - Respiratory Orders None Smoking Cessation: Smoking cessation has been advised. For more information, call the [place] Tobacco Quit Line at 0-521-BZRE-NOW. - Advance Directives Code Status: Full Code - Mobility Orders Ambulate - Rehabiliation Orders Rehab Potential: Good Rehab Orders: Evaluation for Physical Therapy, Evaluation for Occupational Therapy - Diet Orders Regular CERTIFICATION: I certify that the transfer of the above named patient to an Extended Care Facility is necessary for the continuing treatment of the diagnosis listed. The above information is true and accurate reflection of patient's current condition. Confidential - Redisclosure prohibited without a patient's written consent.
[2017-10-22] MEDS: TOFACITINIB CITRATE 10 MG PO SCH (09:58)
[2017-10-22 10:29] LABS: Hematocrit 36.2 % (35.3-44.9); Hemoglobin 11.8 g/dL (11.5-15.4); Mean Corpuscular HGB Conc 32.6 g/dL (31.6-35.5); Mean Corpuscular Hemoglobin 34.2 pg (28.0-33.3); Mean Corpuscular Volume 104.9 fL (83.0-100.0); Mean Platelet Volume 10.3 fL (9.4-12.4); Platelet Count 243 K/mcL (140-400); Red Blood Count 3.45 M/mcL (3.82-4.97); Red Cell Distribution Width 14.1 % (11.5-14.5)
[2017-10-22 10:54] LABS: BUN/Creatinine Ratio 30 (6-26); Blood Urea Nitrogen 30 mg/dL (8-23); Calcium 9.7 mg/dL (8.6-10.3); Carbon Dioxide 23 mEq/L (23-29); Chloride 102 mEq/L (98-107); Glucose 195 mg/dL (70-105); Osmolality,Calculated 290 (280-300); Potassium 4.4 mEq/L (3.5-5.1); Sodium 134 mEq/L (136-145); eGFR For Non-African Americans 54 (> 60)
[2017-10-22] MEDS ORDERED: Nitrofurantoin (BID) 100 MG CAPSULE PO SCH (17:00)
[2017-10-23] MEDS: *HR* Heparin 5,000 UNIT/ML VIAL SQ SCH (05:44)
--- NOTE | 2017-10-23 08:26 | Event Note ---
Date of Encounter: 10/23/17 Time of Encounter: 08:17 Patient seen and evaluated at bedside. Reports feeling a little bit depressed, because of the uncertainty of when she will be transferred to rehabilitation. Denies suicidal and homicidal ideation. Denies shortness of breath, productive cough, or chest pain. Mild discomfort in the suprapubic area. Physical exam: General: Patient is alert, oriented, no acute distress Head: atraumatic, normocephalic, Respiratory: Good respiratory effort. Clear to auscultation bilaterally, no wheezing or crackles in the posterior lung pike. Cardiovascular: Normal s1 and s2 No rubs, gallops, or murmors. Abdomen: Bowel sounds present normoactive x-4 quadrants. Abdomen is soft, nondistended. No guarding or rebound. Mild suprapubic tenderness to deep palpation. Musculoskeletal: Spontaneously moving all extremities. no edema, no calf tenderness in the right lower extremity. Left lower extremity with orthopedic dressing. Skin: warm, dry, intact. Neuro: Alert and oriented x4. Cranial nerves 2-12 is intact. Psych: Patient's affect is normal Assessment and Plan: 1. Non-traumatic Closed fracture of the left tibia and fibula 2. Urinary tract infection 3. Rheumatoid arthritis 4. Hypertension 5. VTE prophylaxis Plan: - Continue tramadol for pain control. - Patient on home medication for rheumatoid arthritis - Change nitrofurantoin to ciprofloxacin for UTI. Urine culture growing gram- negative rods sensitivity to follow. - Continue amiloride for pressure control - On Celecoxib for RA - PPI - Heparin 5000 units SUbQ BID for VTE prophylaxis Disposition: - Pending insurance authorization for placement to rehabilitation facility. - Patient medically cleared to be transferred to rehabilitation.
[2017-10-23] MEDS: TOFACITINIB CITRATE 10 MG PO SCH (09:42)
[2017-10-23] MEDS: Celecoxib 200 MG CAPSULE PO SCH (09:43)
[2017-10-23] MEDS: traMADol 50 MG TABLET PO PRN (09:43)
[2017-10-23] MEDS: aMILoride 5 MG TABLET PO SCH (09:43)
[2017-10-23] MEDS: Multivit/Ca/Min/Fe/FA 1 TAB TABLET PO SCH (09:43)
[2017-10-23 11:02] VITALS: BP 107/69
== END 2017-10-23 15:19 ==
LOC: 3NENU 06:23 → EMEROOARM 06:23 → SUATTDRO 12:01 → 3NENU 12:45
PROVIDERS: ADMIT Student in an Organized Health Care Education/Training Program; ATTEND Internal Medicine